=== PATIENT | male | born 1975 | race Caucasian/White ===

== ENCOUNTER 2018-08-10 16:28 | Emergency (ER) | payer BC ==
[2018-08-10 16:38] VITALS: BMI 24.9
--- NOTE | 2018-08-10 16:54 | PDOC ---
History of Present Illness - General Chief Complaint: Wound Stated Complaint: INFECTION ON RT HAND History Source: Patient Exam Limitations: No Limitations - History of Present Illness Initial Comments: 08/10/18 16:53 42 yo male with h/o right hand laceration 2 weeks ago, now with swelling and redness. started last night, this am noted significant swelling. no f/c significant pain. 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 unsure exact mechanism of initial abrasion 2 yrs ago. 08/10/18 16:58 Past History - Past Medical History Allergies/Adverse Reactions: Allergies Allergy/AdvReac Type Severity Reaction Status Date / Time cefaclor [From [facility]] Allergy Rash Verified 08/10/18 16:34 Home Medications: Ambulatory Orders Dextroamphetamine/Amphetamine [Adderall 10 mg Tablet] 10 mg PO HS 08/10/18 Dextroamphetamine/Amphetamine [Adderall Xr 20 mg Capsule] 30 mg PO DAILY COPD: No - Immunization History Immunization Up to Date: No - Suicide/Smoking/Psychosocial Hx Smoking History: Current every day smoker Number of Cigarettes Smoked Daily: 1 Information on smoking cessation initiated: No 'Breaking Loose' booklet given: 12/23/14 Hx Alcohol Use: Yes (SOCIAL) Review of Systems - Review of Systems Constitutional: No: Chills, Diaphoresis, Fever HEENTM: No: Eye Pain, Blurred Vision Respiratory: No: Cough, Orthopnea, Shortness of Breath Cardiac (ROS): No: Chest Pain, Edema : No: Burning, Dysuria Integumentary: Yes: Erythema. No: Bruising Neurological: No: Headache, Numbness All Other Systems: Reviewed and Negative *Physical Exam - Vital Signs Last Vital Signs Temp Pulse Resp BP Pulse Ox 97.8 F 86 18 129/78 96 08/10/18 16:35 08/10/18 16:35 08/10/18 16:35 08/10/18 16:35 08/10/18 16:35 - Physical Exam Comments: 08/10/18 17:09 awake alert lungs clear bilaterally heart rrr no mrg abd soft nt nd. ext wwp . right upper ext swelling hand dorsum with laceration, small area of fluctuance, erythema fullness and swelling to whole hand to wrist and slightly beyond. no pain with passive extension distally n/v intact. 2 + radial and median a. pulses. ED Treatment Course - LABORATORY CBC & Chemistry Diagram: 08/10/18 17:06 08/10/18 17:06 Medical Decision Making - Medical Decision Making 08/10/18 17:12 pt with hand abscess and cellulitis, concern for earlier deep space infection. will treat with iv abx. if no hand call available will transfer to [place]. d/w dr. 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 pg dr. Sultana. awaiting call back. will obtain xray r/o fb. iv vanco and zosyn. has had pcn/ amoxicillin in past no known allergies. 08/10/18 17:30 no hand call available. transfer to [place]. accepting DR Zambrano hand surgeon. pt to go to ed. 08/10/18 18:05 was given zosyn, followed by vancomycin. pt developed rash, itchy after vancomycinl. abx immediately stopped. given bendaryl 50, solumedrol and pepcid. ivpb. unclear if vanco or zosyn. 08/10/18 18:09 *DC/Admit/Observation/Transfer Diagnosis at time of Disposition: Hand abscess, Cellulitis of hand, Allergic reaction - Discharge Dispostion Disposition: TRANSFER ACUTE CARE/OTHER HOSP - Referrals Referrals: Jhonny Pena [Primary Care Provider] - - Patient Instructions - Post Discharge Activity
[2018-08-10] MEDS ORDERED: VANCOMYCIN 1 GRAM (PRE-DOCKED) 1,000 MG/250 ML BAG IVPB ONE ×2 (17:13→17:15)
[2018-08-10] MEDS ORDERED: PIPERACILLIN/TAZOB 3.375 GM 3.375 GM in DEXTROSE 5%-WATER - 50 ML IVPB ONE (17:14)
[2018-08-10] MEDS ORDERED: PIPERACILLIN/TAZOB 3.375 GM 3.375 GM/50 ML BAG IVPB ONE (17:15)
[2018-08-10 17:23] LABS: BASO % 0.5 % (0-2.0); EOS % 1.4 % (0-4.5); HEMATOCRIT 45.5 % (35.4-49); HEMOGLOBIN 16.1 GM/dL (11.7-16.9); LYMPH % 14.9 % (8-40); MCH 31.8 pg (25.7-33.7); MCHC 35.4 g/dl (32.0-35.9); MEAN CELL VOLUME 89.7 fl (80-96); MEAN PLT VOLUME 8.2 fl (7.5-11.1); MONO % 6.1 % (3.8-10.2); NEUT % 77.1 % (42.8-82.8); PLATELET COUNT 219 K/MM3 (134-434); RBC 5.07 M/mm3 (4.00-5.60); RDW 12.7 % (11.9-15.9); WHITE BLOOD COUNT 11.1 K/mm3 (4.0-10.0)
[2018-08-10 17:42] LABS: ALBUMIN 4.2 g/dl (3.4-5.0); ALK PHOS 91 U/L (45-117); ANION GAP 6 MMOL/L (8-16); BILIRUBIN,TOTAL 0.4 mg/dL (0.2-1); BLOOD UREA NITROGEN 14 mg/dL (7-18); CALCIUM 9.3 mg/dL (8.5-10.1); CHLORIDE 106 mmol/L (98-107); CO2 26 mmol/L (21-32); CREATININE 0.9 mg/dL (0.55-1.3); GLUCOSE,RANDOM 102 mg/dL (74-106); SGOT/AST 17 U/L (15-37); SGPT/ALT 33 U/L (13-61); SODIUM 138 mmol/L (136-145); TOT PROT 7.3 g/dl (6.4-8.2)
[2018-08-10] MEDS ORDERED: methylPREDNISolone NA SUCC 125 MG/2 ML VIAL IVPB ONE (18:05)
[2018-08-10] MEDS ORDERED: FAMOTIDINE 20 MG/50 ML IVPB 20 MG/50 ML MG IVPB ONE ×2 (18:05→18:07)
[2018-08-10] MEDS ORDERED: methylPREDNISolone NA SUCC 125 MG/2 ML VIAL ONE (18:07)
[2018-08-10 18:25] VITALS: BP 115/79; PULSE 73; TEMP 97.9
== END 2018-08-10 18:20 | disposition short-term general hospital (02) ==
LOC: JER 16:28
PROC: 3E03329 Introduction of Other Anti-infective into Peripheral Vein, Percutaneous Approach (ICD-10-PCS; principal; 2018-08-10)
PROC: 3E033GC Introduction of Other Therapeutic Substance into Peripheral Vein, Percutaneous Approach (ICD-10-PCS; 2018-08-10)
PROC: 3E03329 Introduction of Other Anti-infective into Peripheral Vein, Percutaneous Approach (ICD-10-PCS; 2018-08-10)
PROC: 3E033GC Introduction of Other Therapeutic Substance into Peripheral Vein, Percutaneous Approach (ICD-10-PCS; 2018-08-10)
PROC: 3E0333Z Introduction of Anti-inflammatory into Peripheral Vein, Percutaneous Approach (ICD-10-PCS; 2018-08-10)
DX: L03.113 Cellulitis of right upper limb (principal); L27.0 Generalized skin eruption due to drugs and medicaments taken internally; T36.8X5A Adverse effect of other systemic antibiotics, initial encounter; Y92.238 Other place in hospital as the place of occurrence of the external cause
CPT/HCPCS: 36415; 73130-TC-RT-FY; 80053; 83605; 85025; 86850; 86870; 86900; 86901; 86902; 87040; 99284-25

== ENCOUNTER 2021-10-06 15:25 | Emergency (ER) | payer BC ==
[2021-10-06 16:11] VITALS: BP 121/78; PULSE 103; TEMP 99.1; BMI 24.3
[2021-10-06 17:33] LABS: BASO % 0.4 % (0-2.0); EOS % 0.1 % (0-4.5); HEMATOCRIT 49.8 % (35.4-49); HEMOGLOBIN 16.9 GM/dL (11.7-16.9); LYMPH % 13.4 % (8-40); MCH 30.5 pg (25.7-33.7); MCHC 33.9 g/dl (32.0-35.9); MEAN PLT VOLUME 8.7 fl (7.5-11.1); MONO % 10.1 % (3.8-10.2); PLATELET COUNT 163 10^3/uL (134-434); RBC 5.54 M/mm3 (4.00-5.60); RDW 12.5 % (11.9-15.9)
[2021-10-07 20:06] LABS: SARS-CoV-2 NAA Not Detected (Not Detected)
== END 2021-10-06 17:09 | disposition home or self-care (01) ==
LOC: FER 15:25
DX: S86.911A Strain of unspecified muscle(s) and tendon(s) at lower leg level, right leg, initial encounter (principal); M25.561 Pain in right knee
CPT/HCPCS: 36415; 73562-TC-RT-FY; 85025; 87804; 99284-25; C9803; U0003; U0005